=== PATIENT | male | born 1955 | race Caucasian/White ===

== ENCOUNTER → 2018-08-22 | Outpatient (CLI) | payer MEDICARE, OTHER ==
--- NOTE | 2018-08-22 18:19 | MRI ---
EXAM DESCRIPTION: Lumbar Spine w/o Contrast CLINICAL HISTORY: LUMBAR RADICULOPATHY COMPARISON: Lumbar spine dated 07 August 2018 TECHNIQUE: Multi plantar multi sequence non contrast imaging. FINDINGS: There is good alignment of the lumbar spine. There is no vertebral pathology. No extra spinous abnormality is detected L1-2: The disc is desiccated. Loss of disc height is observed. A central annular bulge is evident. No neural foraminal disease is detected. L2-3: The disc is desiccated. A central 2.1 mm disc bulge is evident. No neural foraminal disease of significance is detected L3-4: The disc is desiccated. Loss of disc height is observed. Endplate degenerative changes are observed. A left-sided 2.8 mm disc bulge is evident. Facet joint arthritis is observed with mild left-sided hypertrophy. The right neural foramen is intact. There is mild encroachment upon the left neural foramen. L4-5: The disc is desiccated. A minimal annular bulge is evident. Facet joint arthritis and hypertrophy are observed resulting in a moderate spinal stenosis. The left neural foramen is patent. There is encroachment upon the right neural foramen as result of facet joint arthritis. L5-S1: The disc is desiccated. No significant disc bulge is observed. No neural foraminal disease of significance is detected. IMPRESSION: 1. Moderate spinal stenosis is observed at the L4-5 level as a result of facet joint arthritis and an annular bulge. There is encroachment upon the right neural foramen as result of facet joint arthritis. 2. A left-sided 2.8 mm disc bulge is observed at the L3-4 level and there is also left-sided facet joint hypertrophy with compromise of the left lateral recess. Mild encroachment upon the left neural foramen is also observed. 3. A central 2.1 monitor disc bulge is observed at the L2-3 level. Electronically signed by: Cristian Ayala MD 08/22/2018 6:15 PM CDT
== END ==
LOC: MRI 06:44
PROVIDERS: ATTEND General Practice
DX: M51.16 Intervertebral disc disorders with radiculopathy, lumbar region (principal); M48.062 Spinal stenosis, lumbar region with neurogenic claudication

== ENCOUNTER → 2019-01-15 | Outpatient (CLI) | payer MEDICARE, OTHER ==
--- NOTE | 2019-01-15 10:30 | MRI ---
EXAM DESCRIPTION: MRI left hip CLINICAL HISTORY: Left hip pain. Limited range of motion. COMPARISON: None. TECHNIQUE: Multiplanar, multisequence MR images of the left hip FINDINGS: Attenuated gluteus medius tendon with intratendinous and peritendinous edema. Contiguous intratendinous and peritendinous edema and high-grade insertional partial tear of the gluteus medius tendon insertion. Minimal trochanteric bursal fluid. Gluteus minimus muscle volume moderately to severely decreased with grade 3 fatty infiltration bilaterally. Gluteus medius mild muscle volume loss anteriorly with grade 2 fatty infiltration bilaterally. No acute tendon tear on the right. No trochanteric bursal edema or fluid. 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 No diagnostic labral tear. No full-thickness chondrosis/chronic osteochondral lesion of the left hip. Physiologic hip joint fluid. CAM deformity proximal right femur. 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 Chondrosis involves a region about 1.5 cm in greatest dimension No pelvic soft tissue mass lesion, adenopathy or free fluid. No inflammatory process in the pelvis. No diagnostic signal abnormality along the course of the visualized lumbosacral plexus and proximal sciatic nerves IMPRESSION: Gluteus minimus and gluteus medius insertional tendinosis. 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
== END ==
LOC: MRI 07:00
PROVIDERS: ATTEND Neurological Surgery
DX: S76.012A Strain of muscle, fascia and tendon of left hip, initial encounter (principal); M21.852 Other specified acquired deformities of left thigh